=== PATIENT | female | born 1995 | race Hispanic/Latino ===

== ENCOUNTER 2021-08-31 05:30 | Day surgery (SDC) | payer MEDICAID ==
[2021-08-30 16:39] LABS: BASOPHILS % (AUTO) 0.6 % (0.0-5.0); EOSINOPHILS % (AUTO) 1.3 % (0.0-8.0); HEMATOCRIT 39.6 % (36-48); LYMPHOCYTES % (AUTO) 22.2 % (21.0-51.0); MEAN CORPUSCULAR HEMOGLOBIN 28.5 pg (27.0-33.0); MEAN CORPUSCULAR HGB CONC 32.3 g/dL (32.0-36.0); MEAN CORPUSCULAR VOLUME 88.2 fL (79-99); MONOCYTES % (AUTO) 5.1 % (3.0-13.0); NEUTROPHILS % (AUTO) 70.3 % (40.0-77.0); PLATELET COUNT (AUTO) 357 K/uL (130-400); RED BLOOD CELL COUNT(AUTO) 4.49 MIL/uL (4.00-5.50); WHITE BLOOD COUNT (AUTO) 11.5 K/uL (4.8-10.8)
[~2021-08-31] VITALS: Ht 162.6 cm; Wt 124.7 kg
[2021-08-31 06:30] VITALS: BP 132/66
[2021-08-31] MEDS ORDERED: CEPHALEXIN PO (06:38)
[2021-08-31] MEDS ORDERED: ACET-2247 PO (06:38)
[2021-08-31] MEDS ORDERED: MIDAZOLAM HCL 1 MG/ML 2ML VIAL ONE (06:46)
[2021-08-31] MEDS ORDERED: MEPERIDINE-PF 25 MG/ML SYG ONE ×2 (06:47→07:58)
[2021-08-31] MEDS ORDERED: FENTANYL CITRATE PF 50 MCG/1 ML 2ML VIAL ONE ×2 (06:47→07:17)
[2021-08-31] MEDS ORDERED: LACTATED RINGERS 1000ML 1,000 ML IV ONE ×2 (06:54→07:58)
[2021-08-31] MEDS ORDERED: SUCCINYLCHOLINE CHLORIDE 20 MG/ML 10 ML VIAL ONE (06:56)
[2021-08-31] MEDS ORDERED: LIDOCAINE PF 100MG/5ML (2%) SYRINGE 5ML ONE (06:56)
[2021-08-31] MEDS ORDERED: ONDANSETRON 4MG INJ ONE (06:57)
[2021-08-31] MEDS ORDERED: PROPOFOL 10 MG/ML 20ML VIAL IV ONE (06:58)
[2021-08-31] MEDS ORDERED: ROCURONIUM 10MG/1ML SYR 10 MG/ML ML ONE (06:58)
[2021-08-31] MEDS ORDERED: OXYTOCIN 10 USP UNITS/ML ONE (07:13)
[2021-08-31] MEDS ORDERED: CEFAZOLIN SODIUM 1 GM VIAL IVP ONE (07:15)
[2021-08-31] MEDS ORDERED: CEFAZOLIN SODIUM 1 GM VIAL ONE (07:20)
[2021-08-31] MEDS ORDERED: LACTATED RINGERS 1000ML 1,000 ML IV SCH (08:30)
[2021-08-31 09:05] VITALS: BP 117/73
[2021-08-31 09:20] VITALS: BP 121/73
[2021-08-31 09:35] VITALS: BP 120/73
[2021-08-31] MEDS ORDERED: RACEPINEPHRINE HCL 2.25% 0.5 ML NEB SOLN NEB PRN (15:30)
[2021-08-31] MEDS ORDERED: FENTANYL CITRATE PF 50 MCG/1 ML 2ML VIAL IVP PRN (15:30)
[2021-08-31] MEDS ORDERED: ONDANSETRON 4MG INJ IVP PRN (15:30)
[2021-08-31] MEDS ORDERED: PROMETHAZINE HCL 25 MG/ML 1ML AMPULE IM PRN (15:30)
[2021-08-31] MEDS ORDERED: CALDOLOR 800MG+NS 250ML 250 ML IV PRN (15:30)
[2021-08-31] MEDS ORDERED: NALOXONE HCL 0.4 MG/1 ML ML IVP PRN (15:30)
[2021-08-31] MEDS ORDERED: IPRATROPIUM/ALBUTEROL SULFATE 3 ML SOLUTION IH PRN (15:30)
[2021-08-31] MEDS ORDERED: MEPERIDINE-PF 25 MG/ML SYG IVP PRN (15:30)
[2021-08-31] MEDS ORDERED: METOCLOPRAMIDE 10 MG/2 ML VIAL IVP PRN (15:30)
== END 2021-08-31 09:35 | disposition home or self-care (01) ==
LOC: SUH 05:30 → DAH 05:30 → SUH 09:35
PROVIDERS: ATTEND Obstetrics & Gynecology
DX: O02.1 Missed abortion (principal); Z20.822 Contact with and (suspected) exposure to COVID-19; E66.01 Morbid (severe) obesity due to excess calories; Z98.890 Other specified postprocedural states; Z83.3 Family history of diabetes mellitus; Z79.899 Other long term (current) drug therapy
CPT/HCPCS: 36415; 59820; 85025; 86850; 86900; 86901; 87635; A4215; A4221; A4222; A4223; A4663; C9803; J0330; J0690 ×2; J2175 ×2; J2250; J2405; J2590; J3010 ×2; J3490 ×2; J7120 ×3; J2001; J2704